=== PATIENT | female | born 1995 | race Caucasian/White ===

== ENCOUNTER 2017-03-07 19:16 | Emergency (ER) | payer OTHER ==
[~2017-03-07 19:16] MED LIST: AMOXICILLIN PO; AURODEX EAR DRO15 ML OT
== END 2017-03-07 20:20 | disposition home or self-care (01) ==
LOC: CED 19:16 → CFTX 19:16
DX: T78.40XA Allergy, unspecified, initial encounter (principal); B86 Scabies; J45.909 Unspecified asthma, uncomplicated; F17.210 Nicotine dependence, cigarettes, uncomplicated
CPT/HCPCS: 99282